=== PATIENT | male | born 1990 | race Caucasian/White ===

== ENCOUNTER 2016-12-17 13:38 | Emergency (ER) | payer SELFPAY ==
[~2016-12-17] VITALS: Ht 175.3 cm; Wt 77.3 kg
[2016-12-17 13:53] VITALS: BP 119/86; PULSE 68; TEMP 98
== END 2016-12-17 15:08 | disposition home or self-care (01) ==
LOC: COL.ER 13:38
DX: S49.92XA Unspecified injury of left shoulder and upper arm, initial encounter (principal); X50.1XXA Overexertion from prolonged static or awkward postures, initial encounter; W16.012A Fall into swimming pool striking water surface causing other injury, initial encounter; Y92.34 Swimming pool (public) as the place of occurrence of the external cause